=== PATIENT | male | born 1985 | race Caucasian/White ===

== ENCOUNTER 2018-12-14 08:12 | Emergency (ER) | payer SELFPAY ==
[~2018-12-14] VITALS: Ht 162.6 cm; Wt 90.9 kg
[2018-12-14] MEDS ORDERED: AMOXIL500 M1 PO (08:28)
[2018-12-14 08:56] VITALS: BP 179/108
== END 2018-12-14 08:46 | disposition home or self-care (01) ==
LOC: ED 08:12
DX: K05.30 Chronic periodontitis, unspecified (principal)

== ENCOUNTER 2019-02-15 21:37 | Emergency (ER) | payer SELFPAY ==
[~2019-02-15 21:37] MED LIST: AMOXIL500 M1 PO
[2019-02-15 23:14] LABS: HEMATOCRIT 44.1 % (42.0-52.0); HEMOGLOBIN 15.4 g/dL (13.5-18.0); LYMPH# 2.8 (1.50-4.00); MEAN CELL VOLUME 82 fl (78-100); MEAN CORPUSCULAR HEMOGLOBIN 29 pg (27-31); MEAN CORPUSCULAR HGB CONC 35 g/dL (33-37); MEAN PLATELET VOLUME 10.1 fl (7.4-10.4); MONO # 0.9 (0.20-0.80); NEU # 3.8 (1.40-6.50); PLATELET COUNT 242 K/mm3 (130-400); WHITE BLOOD COUNT 8.3 K/mm3 (4.8-10.8)
[2019-02-15 23:20] LABS: EOS # 0.8 (0.04-0.40); EOS % 9.3 % (0.0-4.0)
[2019-02-16 00:15] LABS: ALBUMIN 4.6 g/dL (3.5-5.0); CALCIUM 9.6 mg/dL (8.4-10.2); POTASSIUM 3.7 mmol/L (3.6-5.0); TOTAL BILIRUBIN 0.5 mg/dL (0.2-1.3); TOTAL PROTEIN 7.9 g/dL (6.3-8.2)
[2019-02-16 01:03] LABS: URINE APPEARANCE CLEAR; URINE COLOR YELLOW; URINE PROTEIN(semi-quant) NEGATIVE (NEGATIVE)
[2019-02-16 01:04] LABS: URINE BILIRUBIN NEGATIVE (NEGATIVE); URINE BLOOD NEGATIVE (NEGATIVE); URINE KETONE 1+ (NEGATIVE); URINE LEUKOCYTE ESTERASE NEGATIVE (NEGATIVE); URINE NITRATE NEGATIVE (NEGATIVE); URINE UROBILINOGEN NORMAL (NORMAL); URINE WBC 0-1 /hpf (0-3)
[2019-02-16] MEDS ORDERED: NORVASC 5MG5 MG/TAB PO (01:07)
[2019-02-16 01:18] VITALS: BP 168/94
== END 2019-02-16 01:18 | disposition home or self-care (01) ==
LOC: ED 21:37
PROVIDERS: Nurse Practitioner
DX: E11.65 Type 2 diabetes mellitus with hyperglycemia (principal); I10 Essential (primary) hypertension; Z91.19 Patient's noncompliance with other medical treatment and regimen

== ENCOUNTER 2020-11-10 19:03 | Emergency (ER) | payer SELFPAY ==
[~2020-11-10] VITALS: Ht 160 cm; Wt 113.6 kg
[~2020-11-10 19:03] MED LIST changes: +NORVASC 5MG5 MG/TAB PO
[2020-11-10 20:35] VITALS: BP 126/85
[2020-11-10] MEDS ORDERED: GLUCOTROL5 M2 PO (21:05)
[2020-11-10] MEDS ORDERED: GLUCOPHAGE500 MG/TAB PO (21:05)
[2020-11-10] MEDS ORDERED: HYDROCHLOROTH12.5 M1 PO (21:05)
[2020-11-10] MEDS ORDERED: PRINIVIL10 M1 PO (21:06)
== END 2020-11-10 20:35 | disposition home or self-care (01) ==
LOC: ED 19:03
DX: M25.541 Pain in joints of right hand (principal); I10 Essential (primary) hypertension; W19.XXXA Unspecified fall, initial encounter; Y92.009 Unspecified place in unspecified non-institutional (private) residence as the place of occurrence of the external cause

== ENCOUNTER → 2020-11-14 | Outpatient (CLI) | payer SELFPAY ==
[2020-11-10 20:35] VITALS: BP 126/85
[~2020-11-14] MED LIST changes: +GLUCOPHAGE500 MG/TAB PO; +GLUCOTROL5 M2 PO; +HYDROCHLOROTH12.5 M1 PO; +PRINIVIL10 M1 PO
== END ==
LOC: RAD 10:10
DX: M79.641 Pain in right hand (principal)

== ENCOUNTER → 2021-04-12 | Outpatient (CLI) | payer SELFPAY ==
[~2021-04-12] MED LIST changes: +DECADRON 4MG TAB4 MG PO; +GUAIFEN-CODEINE5 ML PO; +ZITHROMAX 250M250 MG PO
== END ==
LOC: LAB 11:33
DX: U07.1 COVID-19 (principal)

== ENCOUNTER 2021-04-14 12:46 | Emergency (ER) | payer SELFPAY ==
[~2021-04-14 12:46] MED LIST changes: -DECADRON 4MG TAB4 MG PO; -GUAIFEN-CODEINE5 ML PO; -ZITHROMAX 250M250 MG PO
[2021-04-14 13:47] LABS: BASO # 0.01 (0.02-0.10); EOS # 0.02 (0.04-0.40); EOS % 0.4 % (0.0-4.0); HEMATOCRIT 47.5 % (42.0-52.0); LYMPH# 1.33 (1.50-4.00); MEAN CELL VOLUME 83 fl (78-100); MEAN CORPUSCULAR HEMOGLOBIN 30 pg (27-31); MEAN CORPUSCULAR HGB CONC 36 g/dL (33-37); MEAN PLATELET VOLUME 10.2 fl (7.4-10.4); MONO # 0.42 (0.20-0.80); NEU # 3.53 (1.40-6.50); PLATELET COUNT 173 K/mm3 (130-400); RED BLOOD COUNT 5.74 M/mm3 (4.20-5.60); WHITE BLOOD COUNT 5.3 K/mm3 (4.8-10.8)
[2021-04-14 13:53] LABS: ALBUMIN 4.5 g/dL (3.5-5.0)
[2021-04-14 13:56] LABS: TOTAL PROTEIN 7.8 g/dL (6.4-8.3)
[2021-04-14 13:58] LABS: TOTAL BILIRUBIN 0.6 mg/dL (0.2-1.2)
[2021-04-14 14:11] LABS: D-DIMER 0.4 mg/L FEU (0.15-0.50)
[2021-04-14] MEDS ORDERED: DECADRON 4MG TAB4 MG PO (16:16)
[2021-04-14] MEDS ORDERED: ZITHROMAX 250M250 MG PO (16:16)
[2021-04-14] MEDS ORDERED: GUAIFEN-CODEINE5 ML PO (16:16)
[2021-04-14 16:32] VITALS: BP 159/99
== END 2021-04-14 16:40 | disposition home or self-care (01) ==
LOC: ED 12:46
PROVIDERS: Family Medicine
DX: U07.1 COVID-19 (principal); I10 Essential (primary) hypertension; E11.9 Type 2 diabetes mellitus without complications; Z79.84 Long term (current) use of oral hypoglycemic drugs; Z79.899 Other long term (current) drug therapy

== ENCOUNTER → 2023-01-30 | Outpatient (CLI) | payer SELFPAY ==
[~2023-01-30] MED LIST changes: +DECADRON 4MG TAB4 MG PO; +GUAIFEN-CODEINE5 ML PO; +ZITHROMAX 250M250 MG PO
[2023-01-30 10:13] LABS: BASO # 0.03 K/mm3 (0.02-0.10); EOS # 0.33 K/mm3 (0.04-0.40); EOS % 5.6 % (0.0-4.0); HEMATOCRIT 48.9 % (42.0-52.0); HEMOGLOBIN 16.8 g/dL (13.5-18.0); LYMPH# 1.88 K/mm3 (1.50-4.00); MEAN CELL VOLUME 85 fl (78-100); MEAN CORPUSCULAR HEMOGLOBIN 29 pg (27-31); MEAN CORPUSCULAR HGB CONC 34 g/dL (33-37); MEAN PLATELET VOLUME 9.8 fl (7.4-10.4); MONO # 0.53 K/mm3 (0.20-0.80); NEU # 3.09 K/mm3 (1.40-6.50); PLATELET COUNT 247 K/mm3 (130-400); RED BLOOD COUNT 5.76 M/mm3 (4.20-5.60); RED CELL DISTRIBUTION WIDTH 12.5 % (11.5-14.5); WHITE BLOOD COUNT 5.9 K/mm3 (4.8-10.8)
[2023-01-30 10:18] LABS: POTASSIUM 4.2 mmol/L (3.5-5.1)
[2023-01-30 10:19] LABS: ALBUMIN 4.5 g/dL (3.5-5.0)
[2023-01-30 10:20] LABS: CALCIUM 9.6 mg/dL (8.3-10.5)
[2023-01-30 10:23] LABS: TOTAL BILIRUBIN 0.4 mg/dL (0.2-1.2)
== END ==
LOC: LAB 09:52
PROVIDERS: Physician Assistant
DX: Z00.00 Encounter for general adult medical examination without abnormal findings (principal); Z13.29 Encounter for screening for other suspected endocrine disorder; Z13.220 Encounter for screening for lipoid disorders; Z76.89 Persons encountering health services in other specified circumstances; E11.9 Type 2 diabetes mellitus without complications; K21.9 Gastro-esophageal reflux disease without esophagitis; R03.0 Elevated blood-pressure reading, without diagnosis of hypertension

== ENCOUNTER 2024-08-13 00:57 | Emergency (ER) | payer SELFPAY ==
[2024-08-13] MEDS ORDERED: oxyCODONE 5 MG TAB PO ONE (01:30)
[2024-08-13 01:47] VITALS: BP 150/102
== END 2024-08-13 01:47 | disposition home or self-care (01) ==
LOC: ED 00:57
DX: S99.921A Unspecified injury of right foot, initial encounter (principal); Z23 Encounter for immunization; W18.30XA Fall on same level, unspecified, initial encounter; Y93.E1 Activity, personal bathing and showering; Y92.002 Bathroom of unspecified non-institutional (private) residence as the place of occurrence of the external cause
CPT/HCPCS: 90715